=== PATIENT | female | born 1950 ===

== ENCOUNTER 2018-07-13 14:56 | Emergency (ER) | payer OTHER ==
[2018-07-13 15:09] VITALS: BP 123/70; PULSE 62; RESP 18; TEMP 98.7
--- NOTE | 2018-07-13 16:44 | RAD ---
Date of service: 07/13/2018 PROCEDURE: Right ring finger radiographs. HISTORY: right 4th finger pain swelling over dorsal aspect COMPARISON: None. TECHNIQUE: AP radiograph of the right hand, as well as spot oblique and lateral images of ring finger were obtained. FINDINGS: RIGHT RING FINGER: Normal right ring finger, without fracture or focal lesion. Remainder of the right hand (as seen on the AP view) grossly unremarkable. JOINTS: Normal. SOFT TISSUES: Soft tissue swelling 4th digit. OTHER FINDINGS: None. IMPRESSION: Soft tissue swelling without acute articular or osseous abnormality.
[2018-07-13] MEDS ORDERED: Tmp-Smz 800 mg-160 mg DS Tab PO STA (16:51)
--- NOTE | 2018-07-13 16:55 | ED PDOC ---
Arrival/HPI - General Chief Complaint: Finger,Hand,&Wrist Time Seen by Provider: 07/13/18 15:00 Historian: Patient - History of Present Illness Narrative History of Present Illness (Text): 07/13/18 17:21 67yr old female with right 4th finger pain and swelling that started today. no trauma or injury. Patient states when she woke up this morning she noticed pain and swelling along the dorsal aspect of the finger at the PIP joint. No medications have been taken for pain at home. Patient denies fevers or chills. She is complaining of pain with attempted flexion at the DIP joint. She denies pain along the volar aspect of the finger. denies numbness, weakness, tingling in the extremity. Past Medical History - Provider Review Nursing Documentation Reviewed: Yes - Travel History Have you recently traveled outside [place] w/in the past 3 mons?: No - Infectious Disease Hx of Infectious Diseases: None - Tetanus Immunization Tetanus Immunization: Unknown - Cardiac Hx Hypertension: Yes - Gastrointestinal Hx Gastroesophageal Reflux: Yes - Psychiatric Hx Psychophysiologic Disorder: No Hx Anxiety: No Hx Bipolar Disorder: No Hx Depression: No Hx Emotional Abuse: No Hx Hallucinations: No Hx Panic Disorder: No Hx Post Traumatic Stress Disorder: No Hx Psychosis: No Hx Physical Abuse: No Hx Schizophrenia: No Hx Sexual Abuse: No Hx Substance Use: No - Surgical History Hx Hysterectomy: Yes - Anesthesia Hx Anesthesia: Yes Hx Anesthesia Reactions: No Hx Malignant Hyperthermia: No Family/Social History - Physician Review Nursing Documentation Reviewed: Yes Family/Social History: Unknown Family HX Smoking Status: Never Smoked Hx Alcohol Use: No Hx Substance Use: No Allergies/Home Meds Allergies/Adverse Reactions: Allergies Penicillins Allergy (Verified 11/15/16 08:14) ANAPHYLAXIS Review of Systems - Review of Systems Constitutional: absent: Fatigue, Fevers Respiratory: absent: SOB, Cough Cardiovascular: absent: Chest Pain, Palpitations Gastrointestinal: absent: Abdominal Pain, Nausea, Vomiting Musculoskeletal: Arthralgias Skin: Cellulitis. absent: Rash Neurological: absent: Headache, Dizziness Psychiatric: absent: Anxiety, Depression Physical Exam Vital Signs Reviewed: Yes Vital Signs Temp Pulse Resp BP Pulse Ox 07/13/18 14:56 98.7 F 62 18 123/70 97 Temperature: Afebrile Blood Pressure: Normal Pulse: Regular Respiratory Rate: Normal Appearance: Positive for: Well-Appearing, Non-Toxic, Comfortable Pain Distress: None Mental Status: Positive for: Alert and Oriented X 3 - Systems Exam Head: Present: Atraumatic Respiratory/Chest: Present: Clear to Auscultation Cardiovascular: Present: Regular Rate and Rhythm Upper Extremity: Present: NORMAL PULSES, Tenderness (right 4th finger; there is minimal erythema noted over the dorsal aspect of the finger from the proximal cuticle to the middle phalanx. full rom of PIP, Limted flexion of DIP. no volar erythema. no tenderness. minimal edema noted to pulp of finger without erythema or tenderness. ), Swelling, Erythema, Neurovascularly Intact, Capillary Refill < 2s. No: Normal ROM, Deformity Neurological: Present: GCS=15, Speech Normal, Motor Func Grossly Intact, Normal Sensory Function Skin: Present: Warm, Dry Psychiatric: Present: Alert, Oriented x 3 Medical Decision Making ED Course and Treatment: 07/13/18 17:44 Patient is nontoxic well-appearing in no distress with stable vital signs. Patient with erythema and edema to the dorsal aspect of the right fourth finger since this morning without trauma or injury X-ray show no acute fracture or foreign body. Patient given Motrin for pain. Upon reassessment the patient is feeling better there is in decreased range of motion of the DIP joint. Will cover the patient with Bactrim and have the patient follow-up with the hand specialist within the next 2 days. Advised to return tomorrow for reevaluation. Advised immediate return if symptoms worsen persist or if new concerning symptoms develop Patient verbalizes understanding of discharge instructions and need for immediate followup. pt was seen and evaluated by dr. Walter. impression; cellulitis, finger motrin every 6 hours as needed for pain Bactrim 1 tablet twice daily x 7 days Return tomorrow for re-evaluation. follow up with the hand specialist within the next 2 days. Follow up with the primary care physician within the next 2 days. return immediately if symptoms worsen,persist or if new symptoms develop. Reassessment Condition: Re-examined, Improved - RAD Interpretation Radiology Orders: 07/13/18 15:50 HAND RIGHT 4TH DIGIT (FINGER) [RAD] Stat - Medication Orders Current Medication Orders: Discontinued Medications Ibuprofen (Motrin Tab) 600 mg PO STAT STA Stop: 07/13/18 15:55 Last Admin: 07/13/18 16:02 Dose: 600 mg MAR Pain/Vitals Document 07/13/18 16:02 SS (Rec: 12/28/18 16:02 [id number]) Pain Reassessment Is This A Pain ReAssessment? No Sleep Is patient sleeping during reassessment? No Presence of Pain Presence of Pain Yes Disposition/Present on Arrival - Present on Arrival Any Indicators Present on Arrival: No History of DVT/PE: No History of Uncontrolled Diabetes: No Urinary Catheter: No History of Decub. Ulcer: No History Surgical Site Infection Following: None - Disposition Have Diagnosis and Disposition been Completed?: Yes Diagnosis: Cellulitis, finger Disposition: HOME/ ROUTINE Disposition Time: 16:52 Patient Plan: Discharge Patient Problems: Current Active Problems Problem Status Onset Cellulitis, finger Acute Condition: GOOD Discharge Instructions (ExitCare): Cellulitis (ED) Additional Instructions: motrin every 6 hours as needed for pain Bactrim 1 tablet twice daily x 7 days Return tomorrow for re-evaluation. follow up with the hand specialist within the next 2 days. Follow up with the primary care physician within the next 2 days. return immediately if symptoms worsen,persist or if new symptoms develop. Prescriptions: Ibuprofen [Motrin] 600 mg PO Q6H PRN #20 tab PRN Reason: pain/fever reduction Sulfamethoxazole/Trimethoprim [Bactrim DS 800 mg-160 mg] 1 tab PO BID #14 tab Referrals: Janeth Downing MD [Primary Care Provider] - Follow up with primary Rajeev Vallecillo MD [Staff Provider] - Follow up with primary Forms: [facility] (Greenlandic)
[2018-07-13 17:37] VITALS: O2SAT 98
== END 2018-07-13 17:36 | disposition home or self-care (01) ==
LOC: ED 14:56
DX: L03.011 Cellulitis of right finger (principal); I10 Essential (primary) hypertension

== ENCOUNTER 2018-07-15 16:13 | Emergency (ER) | payer OTHER ==
[2018-07-15 16:37] VITALS: BMI 22.0
[2018-07-15 16:42] VITALS: BP 108/61; PULSE 64; RESP 18; TEMP 98.6; O2SAT 99
--- NOTE | 2018-07-15 16:53 | ED PDOC ---
Arrival/HPI - General Chief Complaint: Finger,Hand,&Wrist Time Seen by Provider: 07/15/18 16:37 Historian: Patient, Family - History of Present Illness Narrative History of Present Illness (Text): 67yr old female with past medical history of hypertension presents to the emergency department for follow up for right 4th finger pain and swelling. Patient was originally seen here 2 days ago on 07/13/18, diagnosed with cellulitis, and discharged home with bactrim. Patient was instructed to return in 2 days for a re-evaluation. She reports decreased pain, swelling, and redness of the finger. She has not followed up with her primary doctor or hand specialist. Admits to some diarrhea secondary to the antibiotic, 2-3 times daily. Denies fevers, chills, vomiting, abdominal pain, chest pain, SOB, numbness, weakness, tingling in the extremity, or any other associated complaint. Past Medical History - Provider Review Nursing Documentation Reviewed: Yes - Infectious Disease Hx of Infectious Diseases: None - Tetanus Immunization Tetanus Immunization: Unknown - Reproductive Menopause: Yes - Cardiac Hx Hypertension: Yes - Gastrointestinal Hx Gastroesophageal Reflux: Yes - Psychiatric Hx Psychophysiologic Disorder: No Hx Anxiety: No Hx Bipolar Disorder: No Hx Depression: No Hx Emotional Abuse: No Hx Hallucinations: No Hx Panic Disorder: No Hx Post Traumatic Stress Disorder: No Hx Psychosis: No Hx Physical Abuse: No Hx Schizophrenia: No Hx Sexual Abuse: No Hx Substance Use: No - Surgical History Hx Hysterectomy: Yes - Anesthesia Hx Anesthesia: Yes Hx Anesthesia Reactions: No Hx Malignant Hyperthermia: No Family/Social History - Physician Review Nursing Documentation Reviewed: Yes Family/Social History: No Known Family HX Smoking Status: Never Smoked Hx Alcohol Use: No Hx Substance Use: No Allergies/Home Meds Allergies/Adverse Reactions: Allergies Penicillins Allergy (Verified 07/15/18 16:42) ANAPHYLAXIS Review of Systems - Physician Review All systems were reviewed & negative as marked: Yes - Review of Systems Constitutional: Normal. absent: Fevers Eyes: Normal. absent: Vision Changes, Photophobia ENT: Normal. absent: Sore Throat, Sinus Congestion Respiratory: Normal. absent: SOB, Cough Cardiovascular: Normal. absent: Chest Pain, Palpitations, Syncope Gastrointestinal: Normal. absent: Abdominal Pain, Nausea, Vomiting Genitourinary Female: Normal. absent: Dysuria, Frequency Musculoskeletal: Arthralgias. absent: Back Pain, Neck Pain Skin: Cellulitis. absent: Rash Neurological: Normal. absent: Headache, Dizziness, Focal Weakness, Gait Changes, Facial Droop, Disequilibrium Endocrine: Normal Hemo/Lymphatic: Normal. absent: Adenopathy Psychiatric: Normal Physical Exam Vital Signs Reviewed: Yes Vital Signs Temp Pulse Resp BP Pulse Ox 07/15/18 16:37 98.6 F 64 18 108/61 99 Temperature: Afebrile Blood Pressure: Normal Pulse: Regular Respiratory Rate: Normal Appearance: Positive for: Well-Appearing, Non-Toxic, Comfortable Pain Distress: None Mental Status: Positive for: Alert and Oriented X 3 - Systems Exam Head: Present: Atraumatic, Normocephalic Pupils: Present: PERRL Extroacular Muscles: Present: EOMI Conjunctiva: Present: Normal Mouth: Present: Moist Mucous Membranes Neck: Present: Normal Range of Motion Respiratory/Chest: Present: Clear to Auscultation, Good Air Exchange. No: Respiratory Distress, Accessory Muscle Use Cardiovascular: Present: Regular Rate and Rhythm, Normal S1, S2, Peripheal Pulses Present Abdomen: Present: Normal Bowel Sounds. No: Tenderness, Distention, Peritoneal Signs, Rebound, Guarding Back: Present: Normal Inspection. No: CVA Tenderness, Paraspinal Tenderness Upper Extremity: Present: Normal Inspection, Normal ROM, NORMAL PULSES, Swelling (mild swelling and tenderness to distal 4th digit, right hand), Neurovascularly Intact, Capillary Refill < 2s. No: Cyanosis, Edema, Erythema Lower Extremity: Present: Normal Inspection, Normal ROM Neurological: Present: GCS=15, CN II-XII Intact, Speech Normal, Motor Func Grossly Intact, Normal Sensory Function, Gait Normal Skin: Present: Warm, Dry, Normal Color. No: Rashes Psychiatric: Present: Alert, Oriented x 3, Normal Insight, Normal Concentration, Normal Affect, Normal Mood Medical Decision Making ED Course and Treatment: Patient's finger looks much improved from her prior visit, after looking at photos provided by family member. Patient instructed to continue antibiotics and take yogurt/probiotics and increase fluids secondary to diarrhea. Advised to followup with hand specialist and primary doctor tomorrow, and return for new/worsening symptoms. Plan of care discussed with patient, and strict instructions given regarding prescriptions, importance of follow up, and signs to return to Emergency Department, to include fever, chills, worsening pain, abdominal pain, or any other new/worsening symptoms. Patient verbalizes understanding of discussion. Patient A&Ox3, ambulating with steady gait, stable for discharge home. Disposition/Present on Arrival - Present on Arrival Any Indicators Present on Arrival: No History of DVT/PE: No History of Uncontrolled Diabetes: No Urinary Catheter: No History of Decub. Ulcer: No History Surgical Site Infection Following: None - Disposition Have Diagnosis and Disposition been Completed?: Yes Diagnosis: Visit for wound check Disposition: HOME/ ROUTINE Disposition Time: 16:50 Patient Plan: Discharge Condition: IMPROVED Discharge Instructions (ExitCare): Cellulitis (Skin Infection), Adult (DC) Additional Instructions: Continue antibiotics Take probiotics/yogurt for diarrhea Increase fluids Followup with hand doctor within 2 days Followup with primary doctor within 2 days Referrals: Rajeev Vallecillo MD [Staff Provider] - Follow up with primary Suzanne Friend MD [Medical Doctor] - Follow up with primary [facility] [place]] - Follow up with primary Forms: [facility] (Burkinan), WORK NOTE
== END 2018-07-15 17:06 | disposition home or self-care (01) ==
LOC: ED 16:13
DX: Z48.00 Encounter for change or removal of nonsurgical wound dressing (principal); I10 Essential (primary) hypertension

== ENCOUNTER 2018-07-27 12:55 | Emergency (ER) | payer OTHER ==
[2018-07-27 12:55] VITALS: BMI 22.0
[2018-07-27 14:04] VITALS: RESP 18; TEMP 98
--- NOTE | 2018-07-27 15:33 | CT ---
Date of service: 07/27/2018 PROCEDURE: CT HEAD WITHOUT CONTRAST. HISTORY: r/o ICH COMPARISON: None available. TECHNIQUE: Axial computed tomography images were obtained through the head/brain without intravenous contrast. Radiation dose: Total exam DLP = 878.72 mGy-cm. This CT exam was performed using one or more of the following dose reduction techniques: Automated exposure control, adjustment of the mA and/or kV according to patient size, and/or use of iterative reconstruction technique. FINDINGS: HEMORRHAGE: No intracranial hemorrhage. BRAIN: No mass effect or edema. Bilateral basal ganglia calcifications. The boucher-white matter differentiation appears intact. Please note that MRI with diffusion imaging is more sensitive in the detection of acute ischemic event. VENTRICLES: No hydrocephalus. CALVARIUM: Unremarkable. PARANASAL SINUSES: Unremarkable as visualized. No significant inflammatory changes. MASTOID AIR CELLS: Unremarkable as visualized. No inflammatory changes. OTHER FINDINGS: None. IMPRESSION: No acute intracranial pathology identified.
--- NOTE | 2018-07-27 15:49 | RAD ---
Date of service: 07/27/2018 HISTORY: hypertension COMPARISON: No prior. FINDINGS: LUNGS: No active pulmonary disease. PLEURA: No significant pleural effusion identified, no pneumothorax apparent. CARDIOVASCULAR: No aortic atherosclerotic calcification present. Normal cardiac size. No pulmonary vascular congestion. OSSEOUS STRUCTURES: No significant abnormalities. VISUALIZED UPPER ABDOMEN: Normal. OTHER FINDINGS: None. IMPRESSION: No active disease.
[2018-07-27 16:01] LABS: BASO # 0.02 K/mm3 (0.0-2.0); BASO % 0.3 % (0.0-3.0); EOS % 0.5 % (1.5-5.0); GRAN # 4.21 (1.4-6.5); GRAN % 67.7 % (50.0-68.0); HEMOGLOBIN 13.8 g/dL (12.0-16.0); LYMPH # 1.7 (1.2-3.4); LYMPH % 26.7 % (22.0-35.0); MEAN CELL VOLUME 90.7 fl (80.0-105.0); MEAN CORPUSCULAR HEMOGLOBIN 29.9 pg (25.0-35.0); MEAN CORPUSCULAR HGB CONC 32.9 g/dl (31.0-37.0); MEAN PLATELET VOLUME 10.9 fl (7.0-11.0); MONO # 0.3 (0.1-0.6); MONO % 4.8 % (1.0-6.0); RBC 4.62 10^6/uL (3.5-6.1); RED CELL DISTRIBUTION WIDTH 13.3 % (11.5-14.5); WHITE BLOOD COUNT 6.2 10^3/uL (4.5-11.0)
[2018-07-27 16:03] LABS: ALB/GLOB RATIO 1.3 (1.1-1.8); ALBUMIN 4.7 g/dL (3.0-4.8); ALT/SGPT 33 U/L (7-56); AST/SGOT 31 U/L (14-36); BLOOD UREA NITROGEN 13 mg/dL (7-21); CALCIUM 9.4 mg/dL (8.4-10.5); GFR NON-AFRICAN AMERICAN > 60
[2018-07-27 16:14] LABS: TROPONIN I < 0.01 ng/mL
[2018-07-27 17:37] VITALS: BP 116/70; PULSE 78; O2SAT 98
--- NOTE | 2018-07-27 18:09 | ED PDOC ---
Arrival/HPI - General Chief Complaint: High Blood Pressure Historian: Patient - History of Present Illness Narrative History of Present Illness (Text): 07/27/18 14:55 A 67 year old female, whose past medical history includes hypertension, presents to the emergency department complaining of a mild headache and hypertension for the past 3 days. Patient reports she is complaint with her medication. Patient denies any fever, shortness of breath, chest pain, or any other complaints. PMD: Dr. Downing Time/Duration: Other (3 days) Symptom Onset: Gradual Symptom Course: Unchanged Activities at Onset: Light Context: Home Past Medical History - Provider Review Nursing Documentation Reviewed: Yes - Infectious Disease Hx of Infectious Diseases: None - Tetanus Immunization Tetanus Immunization: Unknown - Cardiac Hx Hypertension: Yes - Gastrointestinal Hx Gastroesophageal Reflux: Yes - Psychiatric Hx Psychophysiologic Disorder: No Hx Anxiety: No Hx Bipolar Disorder: No Hx Depression: No Hx Emotional Abuse: No Hx Hallucinations: No Hx Panic Disorder: No Hx Post Traumatic Stress Disorder: No Hx Psychosis: No Hx Physical Abuse: No Hx Schizophrenia: No Hx Sexual Abuse: No Hx Substance Use: No - Surgical History Hx Hysterectomy: Yes - Anesthesia Hx Anesthesia: Yes Hx Anesthesia Reactions: No Hx Malignant Hyperthermia: No Family/Social History - Physician Review Nursing Documentation Reviewed: Yes Family/Social History: No Known Family HX Smoking Status: Never Smoked Hx Alcohol Use: No Hx Substance Use: No Allergies/Home Meds Allergies/Adverse Reactions: Allergies Penicillins Allergy (Verified 07/27/18 14:05) ANAPHYLAXIS Home Medications: Home Meds Medication Instructions Recorded Confirmed ALPRAZolam [Xanax] 0.25 mg PO BID PRN 07/27/18 07/27/18 Losartan Potassium 25 mg PO DAILY 07/27/18 07/27/18 Pantoprazole Sodium [Protonix] 40 mg PO DAILY 07/27/18 07/27/18 Zolpidem [Ambien] 10 mg PO DAILY 07/27/18 07/27/18 Review of Systems - Physician Review All systems were reviewed & negative as marked: Yes - Review of Systems Constitutional: absent: Fevers Respiratory: absent: SOB Cardiovascular: absent: Chest Pain Neurological: Headache Physical Exam Vital Signs Reviewed: Yes Vital Signs Temp Pulse Resp BP Pulse Ox 07/27/18 17:38 78 18 98 07/27/18 17:00 78 18 116/70 98 07/27/18 14:03 98 F 64 18 144/65 100 Temperature: Afebrile Blood Pressure: Normal Pulse: Regular Respiratory Rate: Normal Appearance: Positive for: Non-Toxic Mental Status: Positive for: Alert and Oriented X 3 - Systems Exam Head: Present: Atraumatic, Normocephalic Pupils: Present: PERRL Extroacular Muscles: Present: EOMI Conjunctiva: Present: Normal Respiratory/Chest: Present: Clear to Auscultation, Good Air Exchange. No: Respiratory Distress, Accessory Muscle Use Cardiovascular: Present: Regular Rate and Rhythm, Normal S1, S2. No: Murmurs Abdomen: No: Tenderness, Distention, Peritoneal Signs Back: Present: Normal Inspection Upper Extremity: Present: Normal Inspection. No: Cyanosis, Edema Lower Extremity: Present: Normal Inspection. No: Edema Neurological: Present: GCS=15, CN II-XII Intact, Speech Normal Skin: Present: Warm, Dry, Normal Color. No: Rashes Psychiatric: Present: Alert, Oriented x 3, Normal Insight, Normal Concentration Medical Decision Making ED Course and Treatment: 07/27/18 14:57 Impression: 67 year old female hypertension, presents to the emergency depa rtment complaining of a mild headache and hypertension. Plan: -- EKG -- Toradol -- Reassess and disposition Prior Visits: Notes and results from previous visits were reviewed. Progress Notes: - Lab Interpretations Lab Results: Troponin I < 0.01 ng/mL 07/27/18 15:48 Total Bilirubin 0.6 mg/dL (0.2-1.3) 07/27/18 15:48 AST 31 U/L (14-36) 07/27/18 15:48 ALT 33 U/L (7-56) 07/27/18 15:48 Alkaline Phosphatase 59 U/L (38-126) 07/27/18 15:48 Total Protein 8.4 g/dL (5.8-8.3) H 07/27/18 15:48 Albumin 4.7 g/dL (3.0-4.8) 07/27/18 15:48 Globulin 3.7 gm/dL 07/27/18 15:48 Albumin/Globulin Ratio 1.3 (1.1-1.8) 07/27/18 15:48 - RAD Interpretation Radiology Orders: 07/27/18 15:00 CHEST PORTABLE [RAD] Stat 07/27/18 15:01 HEAD W/O CONTRAST [CT] Stat - Medication Orders Current Medication Orders: Discontinued Medications Ketorolac Tromethamine (Toradol) 30 mg IVP STAT STA Stop: 07/27/18 15:01 Last Admin: 07/27/18 15:44 Dose: 30 mg MAR Pain Assessment Document 07/27/18 15:44 SS (Rec: 07/27/18 15:44 SS [id number] Pain Reassessment Is this a pain reassessment? No Sleep Is patient sleeping during reassessment? No Presence of Pain Presence of Pain Yes Location Pain Location [employer] IVP Administration Document 07/27/18 15:44 SS (Rec: 07/27/18 15:44 SS [id number] Charges for Administration # of IVP Administrations 1 - Scribe Statement The provider has reviewed the documentation as recorded by the Scribe Perla Wolfe All medical record entries made by the Scribe were at my direction and personall y dictated by me. I have reviewed the chart and agree that the record accurately reflects my personal performance of the history, physical exam, medical decision making, and the department course for this patient. I have also personally directed, reviewed, and agree with the discharge instructions and disposition. Disposition/Present on Arrival - Present on Arrival Any Indicators Present on Arrival: No History of DVT/PE: No History of Uncontrolled Diabetes: No Urinary Catheter: No History of Decub. Ulcer: No History Surgical Site Infection Following: None - Disposition Have Diagnosis and Disposition been Completed?: Yes Diagnosis: Hypertension Disposition: HOME/ ROUTINE Disposition Time: 16:15 Condition: GOOD Discharge Instructions (ExitCare): High Blood Pressure (DC) Print Language: BULGARIAN Additional Instructions: JHOANA BARRAGAN, thank you for letting us take care of you today. The emergency medical care you received today was directed at your acute symptoms. If you were prescribed any medication, please fill it and take as directed. It may take several days for your symptoms to resolve. Return to the Emergency Department if your symptoms worsen, do not improve, or if you have any other problems. Please contact your doctor or call one of the physicians/clinics you have been referred to that are listed on the Patient Visit Information form that is included in your discharge packet. Bring any paperwork you were given at discharge with you along with any medications you are taking to your follow up visit. Our treatment cannot replace ongoing medical care by a primary care provider outside of the emergency department. Thank you for allowing the [facility] beds at the [facility] team to be part of your care today. Follow up with the clinic next week for a blood pressure check and re- evaluation. JHOANA BARRAGAN, germán por dejarnos cuidar de usted hoy. La atencin mdica de emergencia que recibi hoy se dirigi a oanh sntomas agudos. Si le recetaron algn medicamento, llnelo y tmelo segn las indicaciones. Los sntomas pueden tardar varios medeiros en resolverse. Regrese al Departamento de Emergencias si oanh sntomas empeoran, no mejoran o si tiene otros problemas. Comunquese con keating mdico o llame a tamiko de los mdicos / clnicas a los que bradley sido referido que figuran en el formulario de Informacin de visita al paciente que se incluye en keating paquete de coy. Lleve todos los documentos que le entregaron al momento del coy junto con todos los medicamentos que est tomando para keating visita de seguimiento. Nuestro tratamiento no puede reemplazar la atencin mdica continua por parte de un proveedor de atencin primaria fuera del departamento de emergencias. Germán por permitir que el equipo de [facility] beds at the [facility] sea parte de keating atencin hoy. Bethany un seguimiento en la clnica la prxima semana para elliott revisin y reevaluacin de la presin arterial. Prescriptions: Ibuprofen [Motrin] 600 mg PO Q6 PRN #20 tab PRN Reason: Pain, Moderate (4-7) Referrals: [facility] [Outside] - Follow up with primary Janeth Downing MD [Primary Care Provider] - Follow up with primary Suzanne Friend MD [Medical Doctor] - Follow up with primary Forms: [facility] (Georgian), [facility] (Bengali)
--- NOTE | 2018-07-27 19:51 | CARD ---
APPROVED REPORT Date of service: 07/27/2018 EKG Measurement Heart [id number] <Conclusion> Normal sinus rhythm Left axis deviation Incomplete right bundle branch block Abnormal ECG
== END 2018-07-27 17:38 | disposition home or self-care (01) ==
LOC: ED 12:55
DX: I10 Essential (primary) hypertension (principal)
CPT/HCPCS: 70450; 71045; 80053; 82550; 83615; 83735; 84484; 85025; 93005; 96374; 99284; J1885